=== PATIENT | female | born 1985 | race Caucasian/White ===

== ENCOUNTER 2017-12-12 13:30 | Emergency (ER) | payer MEDICAID ==
[~2017-12-12] VITALS: Ht 152.4 cm; Wt 56.2 kg
[~2017-12-12 13:30] MED LIST: CARBAMAZEPINE100 M2 PO; CIPROFLOXACIN500 M1 PO; CLONAZEPAM 0.50.5 M1; DEPRESSION; DOXYCYCLINE 10100 MG PO; FAMOTIDINE20 MG PO; FLAGYL500 MG PO; HYDROCODON-ACE1 EAC7 PO; HYDROCODONE-AP1 EAC6 PO; HYDROCODONE-IB1 EACH PO; IBUPROFEN 600600 M1 PO; MECLIZINE HCL12.5 MG PO; NOHOMEMEDICATIONS; NORCO 10-325 T1 EACH PO; NORCO 5-325 TA1 EACH PO; ONDANSETRON HCL4 M2 PO; PAXIL 20 MG TAB20 MG PO; PAXIL10 MG PO; PEPCID20 MG PO; PEPCID40 MG PO; PERCOCET 5-3251 EACH PO; PHENERGAN 25 MG25 MG PO; PRENATAL; PROMS25 WY RECTAL; PROTONIX40 MG PO; PROVENTIL HFA6.7 G1 INH; TEGRETOL XR100 MG PO; TESSALON PERLE100 MG PO; TORADOL 10 MG T10 MG PO; TRAZODONE 150150 M1; TRAZODONE HCL100 MG PO; ULTRAM 50MG TAB50 MG PO; VICODIN 5-5001 EACH PO; ZOFRAN ODT4 MG PO; ZOFRAN4 MG PO; ZOLOFT100 MG
[2017-12-12] MEDS ORDERED: FLEXERIL PO (15:23)
[2017-12-12] MEDS ORDERED: NAPROSYN500 MG PO (15:23)
[2017-12-12 15:35] VITALS: BP 101/63
== END 2017-12-12 15:36 | disposition home or self-care (01) ==
LOC: M.ERS 13:30
DX: S39.012A Strain of muscle, fascia and tendon of lower back, initial encounter (principal); F31.9 Bipolar disorder, unspecified; Z90.710 Acquired absence of both cervix and uterus; X58.XXXA Exposure to other specified factors, initial encounter; Y93.89 Activity, other specified; Y92.89 Other specified places as the place of occurrence of the external cause; Y99.0 Civilian activity done for income or pay

== ENCOUNTER 2018-01-14 11:27 | Emergency (ER) | payer OTHER, MEDICAID ==
[~2018-01-14] VITALS: Ht 152.4 cm; Wt 54.4 kg
[~2018-01-14 11:27] MED LIST changes: +FLEXERIL PO; +NAPROSYN500 MG PO
[2018-01-14 12:25] LABS: ABSOLUTE EOSINOPHILS 0.1 thou/uL (0.0-0.7); ABSOLUTE LYMPHOCYTES 1.9 thou/uL (0.8-5.3); ABSOLUTE MONOCYTES 0.3 thou/uL (0.0-1.2); ABSOLUTE NEUTROPHILS 2.4 thou/uL (1.6-8.1); BASOPHILS 0.8 %; EOSINOPHILS 1.5 %; HEMATOCRIT 40.1 % (37.0-47.0); HEMOGLOBIN 13.8 gm/dL (12.0-15.0); LYMPHOCYTES 39.5 %; MCH 30.5 pg (26.0-34.0); MCHC 34.4 g/dL (28.0-37.0); MCV 88.7 fL (80.0-100.0); MONOCYTES 7.2 %; MPV 9.5 fl. (7.2-11.1); NUCLEATED RBCS 0 /100WBC; PLATELET COUNT* 192 thou/uL (150-400); RBC 4.52 mil/uL (4.20-5.00); WBC 4.7 thou/uL (4.0-11.0)
[2018-01-14 12:39] LABS: CALCIUM 8.3 mg/dL (8.5-10.1); CREATININE 0.8 mg/dL (0.6-1.3); POTASSIUM 4.1 mmol/L (3.5-5.1)
[2018-01-14 12:43] LABS: ALBUMIN 3.6 g/dL (3.4-5.0); TOTAL BILIRUBIN 0.7 mg/dL (<0.1-1.0); TOTAL PROTEIN 6.9 g/dL (6.4-8.2)
[2018-01-14 13:39] LABS: URINE BILIRUBIN NEGATIVE (Negative); URINE BLOOD NEGATIVE (Negative); URINE CLARITY CLEAR; URINE COLOR YELLOW; URINE GLUCOSE-RANDOM NEGATIVE (Negative); URINE KETONES NEGATIVE (Negative); URINE LEUKOCYTES-REFLEX NEGATIVE (Negative); URINE NITRITE-REFLEX NEGATIVE (Negative); URINE PROTEIN NEGATIVE (Negative); URINE SPECIFIC GRAVITY 1.015 (1.005-1.030); URINE UROBILINOGEN 0.2 E.U./dl (0.2-1.0)
[2018-01-14] MEDS ORDERED: TRAMADOL 50 MG50 MG PO (14:44)
[2018-01-14] MEDS ORDERED: ZOFRAN4 MG PO (14:44)
[2018-01-14] MEDS ORDERED: PEPCID40 MG PO (14:44)
[2018-01-14 14:50] VITALS: BP 101/59
== END 2018-01-14 14:52 | disposition home or self-care (01) ==
LOC: M.ERS 11:27
PROVIDERS: Emergency Medicine
DX: R10.13 Epigastric pain (principal); F31.9 Bipolar disorder, unspecified; Z90.710 Acquired absence of both cervix and uterus

== ENCOUNTER 2018-04-19 00:41 | Emergency (ER) | payer MEDICAID ==
[~2018-04-19] VITALS: Ht 160 cm; Wt 56.7 kg
[~2018-04-19 00:41] MED LIST changes: +TRAMADOL 50 MG50 MG PO
[2018-04-19 01:04] LABS: ABSOLUTE EOSINOPHILS 0.1 thou/uL (0.0-0.7); ABSOLUTE LYMPHOCYTES 2.6 thou/uL (0.8-5.3); ABSOLUTE MONOCYTES 0.5 thou/uL (0.0-1.2); ABSOLUTE NEUTROPHILS 4.6 thou/uL (1.6-8.1); BASOPHILS 0.6 %; EOSINOPHILS 0.7 %; HEMATOCRIT 39.5 % (37.0-47.0); HEMOGLOBIN 13.5 gm/dL (12.0-15.0); LYMPHOCYTES 33.8 %; MCH 30.4 pg (26.0-34.0); MCHC 34.2 g/dL (28.0-37.0); MONOCYTES 6.1 %; MPV 10.1 fl. (7.2-11.1); NUCLEATED RBCS 0 /100WBC; PLATELET COUNT* 218 thou/uL (150-400); POLYS 58.8 %; RBC 4.44 mil/uL (4.20-5.00); WBC 7.8 thou/uL (4.0-11.0)
[2018-04-19 01:10] LABS: CALCIUM 8.6 mg/dL (8.5-10.1); CREATININE 0.8 mg/dL (0.6-1.3); POTASSIUM 3.7 mmol/L (3.5-5.1)
[2018-04-19 01:16] LABS: ALBUMIN 3.6 g/dL (3.4-5.0); TOTAL BILIRUBIN 0.4 mg/dL (<0.1-1.0); TOTAL PROTEIN 6.6 g/dL (6.4-8.2)
[2018-04-19 01:18] LABS: URINE BILIRUBIN NEGATIVE (Negative); URINE BLOOD 1+ (Negative); URINE CLARITY CLEAR; URINE COLOR YELLOW; URINE GLUCOSE-RANDOM NEGATIVE (Negative); URINE KETONES NEGATIVE (Negative); URINE LEUKOCYTES-REFLEX NEGATIVE (Negative); URINE NITRITE-REFLEX NEGATIVE (Negative); URINE PROTEIN NEGATIVE (Negative); URINE SPECIFIC GRAVITY >= 1.030 (1.005-1.030); URINE UROBILINOGEN 0.2 E.U./dl (0.2-1.0)
[2018-04-19 01:27] LABS: BACTERIA-REFLEX >30 Many /HPF (None Seen); CASTS None Seen /LPF (None Seen); CRYSTALS None Seen /LPF (None Seen); MUCUS >6 Heavy strn/LPF (None Seen); SQUAMOUS 0-3 Few /LPF (0-3); TRANSITIONAL EPITHEL CELL 0-3 Few /LPF (None Seen); URINE RBC 3-10 Few /HPF (0-2); URINE WBC-REFLEX None Seen /HPF (0-5)
[2018-04-19] MEDS ORDERED: HYDROCODONE-AP1 EAC6 PO (04:30)
[2018-04-19 04:44] VITALS: BP 110/78
--- NOTE | 2018-04-21 15:29 | EKG ---
[place] [address] ELECTROCARDIOGRAM REPORT Name: BUCK HANSEN Room: 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
== END 2018-04-19 04:46 | disposition home or self-care (01) ==
LOC: M.ERS 00:41
PROVIDERS: Emergency Medicine Emergency Medical Services
DX: R10.32 Left lower quadrant pain (principal); F31.9 Bipolar disorder, unspecified; Z88.6 Allergy status to analgesic agent; Z90.710 Acquired absence of both cervix and uterus

== ENCOUNTER 2018-05-23 21:46 | Emergency (ER) | payer MEDICAID ==
[~2018-05-23] VITALS: Ht 152.4 cm; Wt 59.0 kg
[2018-05-23 22:00] LABS: URINE BILIRUBIN NEGATIVE (Negative); URINE BLOOD NEGATIVE (Negative); URINE CLARITY CLEAR; URINE COLOR YELLOW; URINE GLUCOSE-RANDOM NEGATIVE (Negative); URINE KETONES NEGATIVE (Negative); URINE LEUKOCYTES-REFLEX NEGATIVE (Negative); URINE NITRITE-REFLEX NEGATIVE (Negative); URINE PROTEIN NEGATIVE (Negative)
[2018-05-23 22:35] LABS: ABSOLUTE EOSINOPHILS 0.1 thou/uL (0.0-0.7); ABSOLUTE LYMPHOCYTES 2.9 thou/uL (0.8-5.3); ABSOLUTE MONOCYTES 0.5 thou/uL (0.0-1.2); ABSOLUTE NEUTROPHILS 4.3 thou/uL (1.6-8.1); BASOPHILS 0.6 %; HEMATOCRIT 39.9 % (37.0-47.0); HEMOGLOBIN 13.6 gm/dL (12.0-15.0); LYMPHOCYTES 36.8 %; MCH 30.4 pg (26.0-34.0); MCHC 34.2 g/dL (28.0-37.0); MCV 88.9 fL (80.0-100.0); MONOCYTES 6.5 %; MPV 9.2 fl. (7.2-11.1); NUCLEATED RBCS 0 /100WBC; PLATELET COUNT* 236 thou/uL (150-400); POLYS 55.1 %; RBC 4.49 mil/uL (4.20-5.00); RDW-CV 12.2 % (10.5-14.5); WBC 7.8 thou/uL (4.0-11.0)
[2018-05-23 22:43] LABS: CALCIUM 8.9 mg/dL (8.5-10.1); CREATININE 0.8 mg/dL (0.6-1.3); POTASSIUM 3.7 mmol/L (3.5-5.1)
[2018-05-23 22:47] LABS: ALBUMIN 3.7 g/dL (3.4-5.0); TOTAL BILIRUBIN 0.3 mg/dL (<0.1-1.0); TOTAL PROTEIN 7.3 g/dL (6.4-8.2)
[2018-05-23 23:30] VITALS: BP 117/62
== END 2018-05-23 23:32 | disposition home or self-care (01) ==
LOC: M.ERS 21:46
PROVIDERS: Nurse Practitioner Family
DX: R10.32 Left lower quadrant pain (principal); R11.2 Nausea with vomiting, unspecified; F31.9 Bipolar disorder, unspecified; Z90.710 Acquired absence of both cervix and uterus; Z88.8 Allergy status to other drugs, medicaments and biological substances

== ENCOUNTER 2019-02-21 14:34 | Emergency (ER) | payer OTHER, MEDICAID ==
[~2019-02-21] VITALS: Ht 152.4 cm; Wt 59.0 kg
[2019-02-21 15:19] LABS: URINE BILIRUBIN NEGATIVE (Negative); URINE BLOOD NEGATIVE (Negative); URINE CLARITY CLEAR; URINE COLOR YELLOW; URINE GLUCOSE-RANDOM NEGATIVE (Negative); URINE KETONES NEGATIVE (Negative); URINE LEUKOCYTES-REFLEX NEGATIVE (Negative); URINE NITRITE-REFLEX NEGATIVE (Negative); URINE PROTEIN NEGATIVE (Negative); URINE SPECIFIC GRAVITY 1.025 (1.005-1.030); URINE UROBILINOGEN 0.2 E.U./dl (0.2-1.0)
[2019-02-21 15:44] LABS: ABSOLUTE LYMPHOCYTES 1.8 thou/uL (0.8-5.3); ABSOLUTE MONOCYTES 0.4 thou/uL (0.0-1.2); ABSOLUTE NEUTROPHILS 4.1 thou/uL (1.6-8.1); BASOPHILS 0.7 %; EOSINOPHILS 0.8 %; HEMATOCRIT 41.1 % (37.0-47.0); HEMOGLOBIN 14.3 gm/dL (12.0-15.0); LYMPHOCYTES 28.6 %; MCH 30.8 pg (26.0-34.0); MCHC 34.9 g/dL (28.0-37.0); MCV 88.1 fL (80.0-100.0); MONOCYTES 5.7 %; MPV 9.3 fl. (7.2-11.1); NUCLEATED RBCS 0 /100WBC; PLATELET COUNT* 247 thou/uL (150-400); POLYS 64.2 %; RBC 4.66 mil/uL (4.20-5.00); RDW-CV 11.8 % (10.5-14.5); WBC 6.3 thou/uL (4.0-11.0)
[2019-02-21 15:47] LABS: ANION GAP 9 mmol/L (7-16); BUN 9 mg/dL (7-18); CALCIUM 8.8 mg/dL (8.5-10.1); CHLORIDE 102 mmol/L (98-107); CO2 26 mmol/L (21-32); CREATININE 0.8 mg/dL (0.6-1.3); GLUCOSE 82 mg/dL (70-99); POTASSIUM 3.6 mmol/L (3.5-5.1); SODIUM 137 mmol/L (136-145)
[2019-02-21 15:57] LABS: ALBUMIN 3.7 g/dL (3.4-5.0); ALKALINE PHOSPHATASE 66 U/L (46-116); LIPASE 163 U/L (73-393); SGOT 13 U/L (15-37); SGPT 21 U/L (30-65); TOTAL BILIRUBIN 0.5 mg/dL (<0.1-1.0); TOTAL PROTEIN 7.4 g/dL (6.4-8.2); TROPONIN-I LEVEL <0.06 ng/mL (<0.06)
[2019-02-21] MEDS ORDERED: NORCO 5-325 TA1 EAC1 PO (17:29)
[2019-02-21] MEDS ORDERED: ZOFRAN ODT4 MG DISSOLVE (17:29)
[2019-02-21 17:47] VITALS: BP 122/87
--- NOTE | 2019-02-23 16:51 | EKG ---
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
== END 2019-02-21 17:48 | disposition home or self-care (01) ==
LOC: M.ERS 14:34
PROVIDERS: Emergency Medicine Emergency Medical Services
DX: N83.202 Unspecified ovarian cyst, left side (principal); F31.9 Bipolar disorder, unspecified; Z88.0 Allergy status to penicillin; Z88.6 Allergy status to analgesic agent; Z88.1 Allergy status to other antibiotic agents; Z90.710 Acquired absence of both cervix and uterus

== ENCOUNTER 2019-04-18 14:39 | Emergency (ER) | payer OTHER ==
[~2019-04-18] VITALS: Ht 165.1 cm; Wt 59.0 kg
[~2019-04-18 14:39] MED LIST changes: +NORCO 5-325 TA1 EAC1 PO; +ZOFRAN ODT4 MG DISSOLVE
[2019-04-18 15:02] LABS: ABSOLUTE LYMPHOCYTES 1.8 thou/uL (0.8-5.3); ABSOLUTE MONOCYTES 0.4 thou/uL (0.0-1.2); ABSOLUTE NEUTROPHILS 3.4 thou/uL (1.6-8.1); BASOPHILS 0.7 %; EOSINOPHILS 0.8 %; HEMATOCRIT 37.7 % (37.0-47.0); HEMOGLOBIN 13.3 gm/dL (12.0-15.0); LYMPHOCYTES 31.6 %; MCHC 35.4 g/dL (28.0-37.0); MCV 87.4 fL (80.0-100.0); MONOCYTES 6.8 %; MPV 9.4 fl. (7.2-11.1); NUCLEATED RBCS 0 /100WBC; PLATELET COUNT* 214 thou/uL (150-400); POLYS 60.1 %; RBC 4.31 mil/uL (4.20-5.00); RDW-CV 12.1 % (10.5-14.5); WBC 5.6 thou/uL (4.0-11.0)
[2019-04-18 15:06] LABS: URINE BILIRUBIN NEGATIVE (Negative); URINE BLOOD NEGATIVE (Negative); URINE CLARITY SL CLOUDY; URINE COLOR YELLOW; URINE GLUCOSE-RANDOM NEGATIVE (Negative); URINE KETONES NEGATIVE (Negative); URINE LEUKOCYTES-REFLEX 1+ (Negative); URINE NITRITE-REFLEX NEGATIVE (Negative); URINE PROTEIN NEGATIVE (Negative); URINE SPECIFIC GRAVITY 1.025 (1.005-1.030); URINE UROBILINOGEN 0.2 E.U./dl (0.2-1.0)
[2019-04-18 15:17] LABS: CASTS None Seen /LPF (None Seen); CRYSTALS None Seen /LPF (None Seen); MUCUS 4-6 Moderate strn/LPF (None Seen); SQUAMOUS >10 Many /LPF (0-3); URINE RBC 0-2 Rare /HPF (0-2); URINE WBC-REFLEX 0-5 Rare /HPF (0-5)
[2019-04-18 15:25] LABS: CALCIUM 8.5 mg/dL (8.5-10.1); CREATININE 0.9 mg/dL (0.6-1.3); POTASSIUM 3.7 mmol/L (3.5-5.1)
[2019-04-18 15:29] LABS: ALBUMIN 3.8 g/dL (3.4-5.0); TOTAL BILIRUBIN 0.5 mg/dL (<0.1-1.0); TOTAL PROTEIN 7.4 g/dL (6.4-8.2)
[2019-04-18] MEDS ORDERED: TYLENOL WITH CO1 TA1 PO (15:42)
[2019-04-18] MEDS ORDERED: ONDANSETRON ODT4 MG PO (15:42)
[2019-04-18 16:15] VITALS: BP 117/74
== END 2019-04-18 16:19 | disposition home or self-care (01) ==
LOC: M.ERS 14:39
PROVIDERS: Physician Assistant
DX: R11.2 Nausea with vomiting, unspecified (principal); R51 Headache; F32.9 Major depressive disorder, single episode, unspecified; J02.9 Acute pharyngitis, unspecified; Z88.1 Allergy status to other antibiotic agents; Z88.0 Allergy status to penicillin; Z88.5 Allergy status to narcotic agent

== ENCOUNTER 2019-05-17 10:37 | Emergency (ER) | payer OTHER ==
[~2019-05-17] VITALS: Ht 152.4 cm; Wt 59.0 kg
[~2019-05-17 10:37] MED LIST changes: +ONDANSETRON ODT4 MG PO; +TYLENOL WITH CO1 TA1 PO
[2019-05-17] MEDS ORDERED: ZANAFLEX4 MG PO (12:56)
[2019-05-17] MEDS ORDERED: NORCO 5-325 TA1 EAC1 PO (12:56)
[2019-05-17] MEDS ORDERED: MEDROLDOSEPACK PO (12:56)
[2019-05-17 13:13] VITALS: BP 122/75
== END 2019-05-17 13:13 | disposition home or self-care (01) ==
LOC: M.ERS 10:37
DX: S30.0XXA Contusion of lower back and pelvis, initial encounter (principal); M54.32 Sciatica, left side; M54.31 Sciatica, right side; F31.9 Bipolar disorder, unspecified; Z88.1 Allergy status to other antibiotic agents; Z88.6 Allergy status to analgesic agent; Z88.0 Allergy status to penicillin; Z90.710 Acquired absence of both cervix and uterus; W01.0XXA Fall on same level from slipping, tripping and stumbling without subsequent striking against object, initial encounter; Y92.89 Other specified places as the place of occurrence of the external cause; Y93.89 Activity, other specified; Y99.8 Other external cause status

== ENCOUNTER 2019-06-16 18:31 | Emergency (ER) | payer OTHER ==
[~2019-06-16] VITALS: Ht 152.4 cm; Wt 59.0 kg
[~2019-06-16 18:31] MED LIST changes: +MEDROLDOSEPACK PO; +ZANAFLEX4 MG PO
[2019-06-16] MEDS ORDERED: LIDODERM1 EACH TRANSDERM ×2 (19:36→19:38)
[2019-06-16] MEDS ORDERED: TYLENOL WITH CO1 TA1 PO (19:36)
[2019-06-16] MEDS ORDERED: MEDROLDOSEPACK PO (19:36)
[2019-06-16 19:54] VITALS: BP 108/68
== END 2019-06-16 19:55 | disposition home or self-care (01) ==
LOC: M.ERS 18:31
DX: M54.6 Pain in thoracic spine (principal); M79.602 Pain in left arm; F31.9 Bipolar disorder, unspecified; Z90.710 Acquired absence of both cervix and uterus; Z88.1 Allergy status to other antibiotic agents; Z88.6 Allergy status to analgesic agent; Z88.0 Allergy status to penicillin

== ENCOUNTER 2019-12-06 22:31 | Emergency (ER) | payer OTHER | END 2019-12-07 02:15 | disposition home or self-care (01) | LOC: M.ERS 22:31 | DX: R10.13 Epigastric pain (principal); R10.11 Right upper quadrant pain; R19.7 Diarrhea, unspecified; F31.9 Bipolar disorder, unspecified; Z90.710 Acquired absence of both cervix and uterus; Z98.51 Tubal ligation status; Z88.0 Allergy status to penicillin; Z88.1 Allergy status to other antibiotic agents; Z88.6 Allergy status to analgesic agent ==

== ENCOUNTER 2020-02-29 21:29 | Emergency (ER) | payer OTHER ==
[~2020-02-29] VITALS: Ht 152.4 cm; Wt 86.2 kg
[~2020-02-29 21:29] MED LIST changes: +CARAFATE 1 GM TA1 GM PO; +DESYREL150 MG PO; +LIDODERM1 EACH TRANSDERM; +LORCET 5-325 M1 EACH PO; +PAXIL40 MG PO; +PRILOSEC OTC20 MG PO
[2020-02-29] MEDS ORDERED: LAMICTAL100 MG PO (21:50)
[2020-02-29 21:57] LABS: ABSOLUTE BASOPHILS 0.1 thou/uL (0.0-0.2); ABSOLUTE EOSINOPHILS 0.1 thou/uL (0.0-0.7); ABSOLUTE LYMPHOCYTES 2.7 thou/uL (0.8-5.3); ABSOLUTE MONOCYTES 0.4 thou/uL (0.0-1.2); ABSOLUTE NEUTROPHILS 3.1 thou/uL (1.6-8.1); BASOPHILS 0.8 %; EOSINOPHILS 1.4 %; HEMATOCRIT 38.5 % (37.0-47.0); HEMOGLOBIN 13.2 gm/dL (12.0-15.0); LYMPHOCYTES 42.2 %; MCHC 34.4 g/dL (28.0-37.0); MCV 87.2 fL (80.0-100.0); MONOCYTES 6.5 %; MPV 8.6 fl. (7.2-11.1); NUCLEATED RBCS 0 /100WBC; PLATELET COUNT* 222 thou/uL (150-400); POLYS 49.1 %; RBC 4.41 mil/uL (4.20-5.00); RDW-CV 12.2 % (10.5-14.5); WBC 6.3 thou/uL (4.0-11.0)
[2020-02-29 21:58] LABS: URINE BILIRUBIN NEGATIVE (Negative); URINE BLOOD NEGATIVE (Negative); URINE CLARITY CLEAR; URINE COLOR YELLOW; URINE GLUCOSE-RANDOM NEGATIVE (Negative); URINE KETONES NEGATIVE (Negative); URINE NITRITE-REFLEX NEGATIVE (Negative); URINE PROTEIN NEGATIVE (Negative); URINE SPECIFIC GRAVITY >= 1.030 (1.005-1.030); URINE UROBILINOGEN 0.2 E.U./dl (0.2-1.0)
[2020-02-29 22:02] LABS: CALCIUM 8.7 mg/dL (8.5-10.1); POTASSIUM 3.6 mmol/L (3.5-5.1)
[2020-02-29 22:03] LABS: URINE LEUKOCYTES-REFLEX 2+ (Negative)
[2020-02-29 22:16] LABS: CASTS None Seen /LPF (None Seen); MUCUS 0-3 Light strn/LPF (None Seen); SQUAMOUS 0-3 Few /LPF (0-3); URINE RBC 0-2 Rare /HPF (0-2); URINE WBC-REFLEX >25 Many /HPF (0-5)
[2020-02-29 22:17] LABS: CRYSTALS None Seen /LPF (None Seen)
[2020-02-29 22:29] LABS: AMP/METHAMP Negative (Negative); BARBITURATES Negative (Negative); BENZODIAZEPINES Negative (Negative); COCAINE Negative (Negative); METHADONE Negative (Negative); OPIATES POSITIVE (Negative); PCP Negative (Negative); THC Negative (Negative)
[2020-03-01] MEDS ORDERED: ZOFRAN ODT4 MG PO (00:19)
[2020-03-01] MEDS ORDERED: BACTRIM DS TAB1 EACH PO (00:19)
[2020-03-01] MEDS ORDERED: PERCOCET 7.5-31 EAC1 PO (00:19)
[2020-03-01 00:52] VITALS: BP 118/80
== END 2020-03-01 00:53 | disposition home or self-care (01) ==
LOC: M.ERS 21:29
PROVIDERS: Emergency Medicine
DX: N39.0 Urinary tract infection, site not specified (principal); Z79.899 Other long term (current) drug therapy; Z88.0 Allergy status to penicillin; Z88.6 Allergy status to analgesic agent; Z88.1 Allergy status to other antibiotic agents; Z90.49 Acquired absence of other specified parts of digestive tract; Z90.710 Acquired absence of both cervix and uterus

== ENCOUNTER 2020-04-18 12:44 | Emergency (ER) | payer MEDICAID ==
[~2020-04-18] VITALS: Ht 152.4 cm; Wt 69.8 kg
[~2020-04-18 12:44] MED LIST changes: +BACTRIM DS TAB1 EACH PO; +LAMICTAL100 MG PO; +PERCOCET 7.5-31 EAC1 PO
[2020-04-18] MEDS ORDERED: PROZAC40 MG PO (12:56)
[2020-04-18 13:07] LABS: ABSOLUTE LYMPHOCYTES 1.8 thou/uL (0.8-5.3); ABSOLUTE MONOCYTES 0.3 thou/uL (0.0-1.2); ABSOLUTE NEUTROPHILS 2.9 thou/uL (1.6-8.1); BASOPHILS 0.7 %; EOSINOPHILS 0.9 %; HEMATOCRIT 40.7 % (37.0-47.0); LYMPHOCYTES 34.6 %; MCH 29.8 pg (26.0-34.0); MCHC 34.5 g/dL (28.0-37.0); MCV 86.4 fL (80.0-100.0); MPV 8.9 fl. (7.2-11.1); NUCLEATED RBCS 0 /100WBC; PLATELET COUNT* 226 thou/uL (150-400); POLYS 57.8 %; RBC 4.71 mil/uL (4.20-5.00); WBC 5.1 thou/uL (4.0-11.0)
[2020-04-18 13:15] LABS: URINE BILIRUBIN NEGATIVE (Negative); URINE BLOOD NEGATIVE (Negative); URINE CLARITY CLEAR; URINE COLOR YELLOW; URINE GLUCOSE-RANDOM NEGATIVE (Negative); URINE KETONES NEGATIVE (Negative); URINE LEUKOCYTES-REFLEX 1+ (Negative); URINE NITRITE-REFLEX NEGATIVE (Negative); URINE PROTEIN NEGATIVE (Negative); URINE SPECIFIC GRAVITY 1.025 (1.005-1.030); URINE UROBILINOGEN 0.2 E.U./dl (0.2-1.0)
[2020-04-18 13:20] LABS: CALCIUM 8.7 mg/dL (8.5-10.1); CREATININE 0.8 mg/dL (0.6-1.3); POTASSIUM 4.4 mmol/L (3.5-5.1)
[2020-04-18 13:24] LABS: ALBUMIN 3.8 g/dL (3.4-5.0); TOTAL BILIRUBIN 0.4 mg/dL (<0.1-1.0); TOTAL PROTEIN 7.6 g/dL (6.4-8.2)
[2020-04-18] MEDS ORDERED: BACTRIM DS TAB1 EACH PO (13:31)
[2020-04-18] MEDS ORDERED: NORCO 5-325 TA1 EAC2 PO (13:31)
[2020-04-18 13:54] VITALS: BP 143/73
== END 2020-04-18 13:55 | disposition home or self-care (01) ==
LOC: M.ERS 12:44
PROVIDERS: Physician Assistant
DX: N39.0 Urinary tract infection, site not specified (principal); R11.2 Nausea with vomiting, unspecified; R19.7 Diarrhea, unspecified; Z88.0 Allergy status to penicillin; Z88.1 Allergy status to other antibiotic agents; Z88.6 Allergy status to analgesic agent; Z90.710 Acquired absence of both cervix and uterus

== ENCOUNTER 2020-08-27 21:04 | Emergency (ER) | payer OTHER ==
[~2020-08-27] VITALS: Ht 152.4 cm; Wt 70.3 kg
[~2020-08-27 21:04] MED LIST changes: +NORCO 5-325 TA1 EAC2 PO; +PROZAC40 MG PO
[2020-08-27] MEDS ORDERED: HYDROCODON-ACE1 EAC8 PO (22:17)
[2020-08-27 22:20] VITALS: BP 130/77
== END 2020-08-27 22:20 | disposition home or self-care (01) ==
LOC: M.ERS 21:04
DX: S93.491A Sprain of other ligament of right ankle, initial encounter (principal); Z90.710 Acquired absence of both cervix and uterus; Z88.1 Allergy status to other antibiotic agents; Z88.6 Allergy status to analgesic agent; Z88.0 Allergy status to penicillin; X50.9XXA Other and unspecified overexertion or strenuous movements or postures, initial encounter; Y93.89 Activity, other specified; Y92.89 Other specified places as the place of occurrence of the external cause; Y99.8 Other external cause status

== ENCOUNTER 2020-10-30 23:58 | Emergency (ER) | payer OTHER ==
[~2020-10-30] VITALS: Ht 152.4 cm; Wt 68.0 kg
[~2020-10-30 23:58] MED LIST changes: +HYDROCODON-ACE1 EAC8 PO
[2020-10-31 00:25] LABS: URINE BILIRUBIN NEGATIVE (Negative); URINE BLOOD NEGATIVE (Negative); URINE CLARITY SL HAZY; URINE COLOR YELLOW; URINE GLUCOSE-RANDOM NEGATIVE (Negative); URINE KETONES NEGATIVE (Negative); URINE LEUKOCYTES-REFLEX 2+ (Negative); URINE NITRITE-REFLEX NEGATIVE (Negative); URINE PROTEIN NEGATIVE (Negative); URINE SPECIFIC GRAVITY 1.025 (1.005-1.030); URINE UROBILINOGEN 0.2 E.U./dl (0.2-1.0)
[2020-10-31 00:33] LABS: AMP/METHAMP Negative (Negative); BARBITURATES Negative (Negative); BENZODIAZEPINES Negative (Negative); COCAINE Negative (Negative); METHADONE Negative (Negative); OPIATES Negative (Negative); PCP Negative (Negative); THC Negative (Negative)
[2020-10-31 00:38] LABS: ABSOLUTE EOSINOPHILS 0.1 thou/uL (0.0-0.7); ABSOLUTE LYMPHOCYTES 2.5 thou/uL (0.8-5.3); ABSOLUTE MONOCYTES 0.4 thou/uL (0.0-1.2); ABSOLUTE NEUTROPHILS 2.6 thou/uL (1.6-8.1); BASOPHILS 0.9 %; EOSINOPHILS 1.5 %; HEMATOCRIT 38.8 % (37.0-47.0); HEMOGLOBIN 13.5 gm/dL (12.0-15.0); LYMPHOCYTES 44.3 %; MCH 30.1 pg (26.0-34.0); MCHC 34.8 g/dL (28.0-37.0); MCV 86.5 fL (80.0-100.0); MONOCYTES 6.3 %; MPV 8.8 fl. (7.2-11.1); NUCLEATED RBCS 0 /100WBC; PLATELET COUNT* 251 thou/uL (150-400); RBC 4.48 mil/uL (4.20-5.00); RDW-CV 12.3 % (10.5-14.5); WBC 5.6 thou/uL (4.0-11.0)
[2020-10-31 00:49] LABS: CALCIUM 9.1 mg/dL (8.5-10.1); POTASSIUM 4.1 mmol/L (3.5-5.1)
[2020-10-31 00:49] LABS: SQUAMOUS 0-3 Few /LPF (0-3); WBC CLUMPS Few (None Seen)
[2020-10-31 00:50] LABS: BACTERIA-REFLEX >30 Many /HPF (None Seen); CASTS None Seen /LPF (None Seen); CRYSTALS None Seen /LPF (None Seen); MUCUS 4-6 Moderate strn/LPF (None Seen); URINE RBC None Seen /HPF (0-2)
[2020-10-31 00:54] LABS: ALBUMIN 3.9 g/dL (3.4-5.0); TOTAL BILIRUBIN 0.1 mg/dL (<0.1-1.0); TOTAL PROTEIN 7.7 g/dL (6.4-8.2)
[2020-10-31] MEDS ORDERED: HYDROCODON-ACE1 EAC8 PO ×3 (01:28→21:14)
[2020-10-31] MEDS ORDERED: ZOFRAN ODT4 MG PO (01:28)
[2020-10-31] MEDS ORDERED: BACTRIM DS TAB1 EACH PO ×2 (01:28→02:43)
[2020-10-31 02:50] VITALS: BP 112/61
== END 2020-10-31 02:50 | disposition home or self-care (01) ==
LOC: M.ERS 23:58
PROVIDERS: Emergency Medicine
DX: N12 Tubulo-interstitial nephritis, not specified as acute or chronic (principal); Z88.1 Allergy status to other antibiotic agents; Z88.0 Allergy status to penicillin; Z90.710 Acquired absence of both cervix and uterus; Z79.899 Other long term (current) drug therapy

== ENCOUNTER 2021-01-23 16:46 | Emergency (ER) | payer OTHER, MEDICAID ==
[~2021-01-23] VITALS: Ht 152.4 cm; Wt 68.0 kg
[2021-01-23] MEDS ORDERED: ZOLOFT 50 MG TA50 MG PO (16:55)
[2021-01-23] MEDS ORDERED: VENTOLIN HFA 1818 GM INH (17:28)
[2021-01-23] MEDS ORDERED: FLEXERIL PO (17:28)
[2021-01-23] MEDS ORDERED: ZOFRAN ODT4 MG PO (17:28)
[2021-01-23 17:36] VITALS: BP 120/70
== END 2021-01-23 17:37 | disposition home or self-care (01) ==
LOC: M.ERS 16:46
DX: B34.9 Viral infection, unspecified (principal); Z20.822 Contact with and (suspected) exposure to COVID-19; R42 Dizziness and giddiness; F31.9 Bipolar disorder, unspecified; Z87.42 Personal history of other diseases of the female genital tract; Z90.711 Acquired absence of uterus with remaining cervical stump; Z98.51 Tubal ligation status; Z79.899 Other long term (current) drug therapy; Z88.6 Allergy status to analgesic agent; Z88.0 Allergy status to penicillin; Z88.1 Allergy status to other antibiotic agents

== ENCOUNTER 2021-03-19 20:51 | Emergency (ER) | payer OTHER, MEDICAID ==
[~2021-03-19] VITALS: Ht 152.4 cm; Wt 70.3 kg
[~2021-03-19 20:51] MED LIST changes: +VENTOLIN HFA 1818 GM INH; +ZOLOFT 50 MG TA50 MG PO
[2021-03-19 21:03] LABS: URINE BILIRUBIN NEGATIVE (Negative); URINE BLOOD NEGATIVE (Negative); URINE CLARITY SL HAZY; URINE COLOR YELLOW; URINE GLUCOSE-RANDOM NEGATIVE (Negative); URINE KETONES NEGATIVE (Negative); URINE LEUKOCYTES-REFLEX 1+ (Negative); URINE NITRITE-REFLEX NEGATIVE (Negative); URINE PROTEIN NEGATIVE (Negative); URINE SPECIFIC GRAVITY >= 1.030 (1.005-1.030); URINE UROBILINOGEN 0.2 E.U./dl (0.2-1.0)
[2021-03-19 21:13] LABS: BACTERIA-REFLEX >30 Many /HPF (None Seen); CASTS None Seen /LPF (None Seen); CRYSTALS None Seen /LPF (None Seen); MUCUS 0-3 Light strn/LPF (None Seen); SQUAMOUS 0-3 Few /LPF (0-3); URINE RBC 3-10 Few /HPF (0-2); URINE WBC-REFLEX 6-15 Few /HPF (0-5)
[2021-03-19 21:15] LABS: ABSOLUTE EOSINOPHILS 0.1 thou/uL (0.0-0.7); ABSOLUTE LYMPHOCYTES 2.5 thou/uL (0.8-5.3); ABSOLUTE MONOCYTES 0.4 thou/uL (0.0-1.2); ABSOLUTE NEUTROPHILS 2.4 thou/uL (1.6-8.1); BASOPHILS 0.7 %; EOSINOPHILS 1.4 %; HEMATOCRIT 39.6 % (37.0-47.0); HEMOGLOBIN 13.8 gm/dL (12.0-15.0); MCH 30.3 pg (26.0-34.0); MCHC 34.8 g/dL (28.0-37.0); MCV 87.2 fL (80.0-100.0); MPV 9.1 fl. (7.2-11.1); NUCLEATED RBCS 0 /100WBC; PLATELET COUNT* 243 thou/uL (150-400); POLYS 43.9 %; RBC 4.54 mil/uL (4.20-5.00); RDW-CV 12.2 % (10.5-14.5); WBC 5.4 thou/uL (4.0-11.0)
[2021-03-19 21:23] LABS: CREATININE 0.9 mg/dL (0.6-1.3)
[2021-03-19] MEDS ORDERED: BACTRIM DS TAB1 EAC1 PO (21:50)
[2021-03-19] MEDS ORDERED: PYRIDIUM200 MG PO (21:55)
[2021-03-19 22:14] VITALS: BP 118/81
== END 2021-03-19 22:14 | disposition home or self-care (01) ==
LOC: M.ERS 20:51
PROVIDERS: Nurse Practitioner Psychiatric/Mental Health
DX: N39.0 Urinary tract infection, site not specified (principal); F31.9 Bipolar disorder, unspecified; Z90.711 Acquired absence of uterus with remaining cervical stump; Z98.51 Tubal ligation status; Z87.42 Personal history of other diseases of the female genital tract; Z79.899 Other long term (current) drug therapy; Z88.6 Allergy status to analgesic agent; Z88.0 Allergy status to penicillin

== ENCOUNTER 2021-06-27 01:04 | Emergency (ER) | payer OTHER, MEDICAID ==
[~2021-06-27] VITALS: Ht 152.4 cm; Wt 72.6 kg
--- NOTE | ~2021-06-27 | EMS ---
[facility] [address] [place] [address] EMS Patient Care Report Name: CHELITA PERALTA Room: [facility] ([place], [place])Lynette#: [id number] Admission: 06/27/21 Attend Phys: Discharge: 06/27/21 Date of : [birth year] Report #: [id number] THIS REPORT FOR: //name// Report Transmitted: 06/29/2021 13:38 EMS Care Summary [facility] [place] Incident [id number] @ 06/27/2021 00:24 Incident Location [address] [place] [address] Patient Chelita Peralta Female, 36 Years 1985 Patient Address [address] [place] [address] Patient History Kidney Stone,Acquired absence of cervix and uterus,Anxiety disorder, unspecified,Dysthymic disorder, Patient Allergies , Patient Medications An Tariq, Chief Complaint Bleeding Disposition Transported No Lights/[place] Dispatch Reason Hemorrhage/Laceration Transported To [facility] Narrative 308 was dispatched to a residence for bleeding while urinating. 308 arrived at [address] [facility]. After several minutes of searching for the address, dispatch advised of an address correction. 308 arrived on scene of the correct address. [facility] [address] [place] [address] EMS Patient Care Report Name: CHELITA PERALTA Room[facility]#: [id number] Admission: 06/27/21 Attend Phys: Discharge: 06/27/21 Date of : 87 Report #: [id number] Pt was found crouching in front of the couch with her head leaning on the couch. [facility] was on scene with. Pt was alert and oriented to person, place, time, and event. Pt was cooperative. Pt stated it felt like the last time she had kidney stones. Pt was assisted to standing position. Pt was able to walk out to the cot on her own without any injuries/incidents. Pt was seatbelted onto the cot using all straps. Pt was loaded into the ambulance without any injuries/incidents. Pt was put on the monitor. Pt vitals were obtained and documented. Pt stated the last time she had kidney stones was in March of 2021. Pt was asked about positions that made the pain lessen or worse. Pt stated there was no position that made the pain better. En route pt was cooperative. Pt vitals were obtained and documented. Pt was talking in full sentences showing signs of maintaining her own airway. Pt was not showing any signs of respiratory distress. Pt skin was moist, warm, and normal appearance. Pt was resting on cot. Pt was crying due to the pain. Pt had informed EMS she had taken some tylenol for the pain. At destination pt was cooperative. Pt was unhooked from the monitor. Pt was unloaded from the ambulance without any injuries/incidents. Pt was escorted on the cot to ER triage without any injuries/incidents. Pt was unbuckled from the cot and walked by herself to the chair in the triage intake without any injuries/incidents. Pt report was given to nurse. Pt care was transferred to nurse. Initial Vitals @00:42SpO2: 100, @00:46SpO2: 98, @00:51SpO2: 99, @00:56SpO2: 99, @00:57SpO2: 99, @00:42P: 96,R: 18,BP: 145/99, @00:57P: 79,R: 19,BP: 143/90, @00:42GCS: 15, @00:57GCS: 15, Assessments @00:31MENTAL:SKIN:HEENT:LUNG SOUNDS:ABDOMEN:PELVIS//GI:EXTREMITIES:PULSE:NEURO: Impression Urinary Tract Infection (UTI) Timeline 00:23,Dispatch Notified 00:23,Psap Call 00:24,Dispatched 00:24,En Route 00:31,[place] [address] EMS Patient Care Report Name: CHELITA PERALTA Room: [facility] ([place], [place])Lynette#: [id number] Admission: 06/27/21 Attend Phys: Discharge: 06/27/21 Date of : 87 Report #: [id number] 00:31,At Patient 00:42,BP: / M,PULSE: ,RR: R,SPO2: 100 Ox,ETCO2: ,BG: ,PAIN: ,GCS: , 00:42,BP: 145/99 M,PULSE: 96,RR: 18 R,SPO2: Ox,ETCO2: ,BG: ,PAIN: ,GCS: , 00:42,BP: / M,PULSE: ,RR: R,SPO2: Ox,ETCO2: ,BG: ,PAIN: ,GCS: 15, 00:44,Depart Scene 00:46,BP: / M,PULSE: ,RR: R,SPO2: 98 Ox,ETCO2: ,BG: ,PAIN: ,GCS: , 00:51,BP: / M,PULSE: ,RR: R,SPO2: 99 Ox,ETCO2: ,BG: ,PAIN: ,GCS: , 00:56,BP: / M,PULSE: ,RR: R,SPO2: 99 Ox,ETCO2: ,BG: ,PAIN: ,GCS: , 00:57,BP: / M,PULSE: ,RR: R,SPO2: 99 Ox,ETCO2: ,BG: ,PAIN: ,GCS: , 00:57,BP: 143/90 M,PULSE: 79,RR: 19 R,SPO2: Ox,ETCO2: ,BG: ,PAIN: ,GCS: , 00:57,BP: / M,PULSE: ,RR: R,SPO2: Ox,ETCO2: ,BG: ,PAIN: ,GCS: 15, 01:02,At Destination 01:07,Call Closed Disclaimer v1.1 Copyright 2021 [employer] This EMS Care Summary contains data elements from the applicable legal record (which may be displayed differently). It is designed to provide pertinent information for the following purposes: continuity of care, clinical quality, and state data reporting. The complete legal record is available to ED staff and administrators of the receiving hospital in [employer] Patient Tracker. All data is provided "as is."
[~2021-06-27 01:04] MED LIST changes: +BACTRIM DS TAB1 EAC1 PO; +PYRIDIUM200 MG PO
[2021-06-27] MEDS ORDERED: ABILIFY 2 MG2 M1 PO (01:09)
[2021-06-27 02:33] LABS: URINE BILIRUBIN NEGATIVE (Negative); URINE BLOOD 3+ (Negative); URINE CLARITY SL CLOUDY; URINE COLOR YELLOW; URINE GLUCOSE-RANDOM NEGATIVE (Negative); URINE KETONES NEGATIVE (Negative); URINE LEUKOCYTES-REFLEX 1+ (Negative); URINE NITRITE-REFLEX NEGATIVE (Negative); URINE PROTEIN NEGATIVE (Negative); URINE SPECIFIC GRAVITY 1.025 (1.005-1.030); URINE UROBILINOGEN 0.2 E.U./dl (0.2-1.0)
[2021-06-27 02:33] LABS: HEMATOCRIT 37.7 % (37.0-47.0); HEMOGLOBIN 12.9 gm/dL (12.0-15.0); MCHC 34.3 g/dL (28.0-37.0); MCV 87.6 fL (80.0-100.0); MPV 8.8 fl. (7.2-11.1); RBC 4.31 mil/uL (4.20-5.00); RDW-CV 12.1 % (10.5-14.5); WBC 6.2 thou/uL (4.0-11.0)
[2021-06-27 02:37] LABS: CALCIUM 8.3 mg/dL (8.5-10.1); CREATININE 0.7 mg/dL (0.6-1.3); POTASSIUM 3.7 mmol/L (3.5-5.1)
[2021-06-27 02:41] LABS: ALBUMIN 3.8 g/dL (3.4-5.0); TOTAL BILIRUBIN 0.3 mg/dL (<0.1-1.0); TOTAL PROTEIN 7.1 g/dL (6.4-8.2)
[2021-06-27 02:42] LABS: BACTERIA-REFLEX >30 Many /HPF (None Seen); CASTS None Seen /LPF (None Seen); CRYSTALS None Seen /LPF (None Seen); MUCUS 0-3 Light strn/LPF (None Seen); SQUAMOUS 0-3 Few /LPF (0-3); URINE RBC >20 Many /HPF (0-2); URINE WBC-REFLEX >25 Many /HPF (0-5); WBC CLUMPS Few (None Seen)
[2021-06-27] MEDS ORDERED: ACETAMINOPHEN-1 EAC2 PO (05:00)
[2021-06-27] MEDS ORDERED: IBUPROFEN 800800 MG PO (05:00)
[2021-06-27] MEDS ORDERED: ZOFRAN ODT4 MG PO (05:00)
[2021-06-27] MEDS ORDERED: CIPROFLOXACIN500 M1 PO (05:03)
[2021-06-27 05:30] VITALS: BP 123/71
== END 2021-06-27 05:32 | disposition home or self-care (01) ==
LOC: M.ERS 01:04
PROVIDERS: Personal Emergency Response Attendant
DX: N39.0 Urinary tract infection, site not specified (principal); R10.84 Generalized abdominal pain; F32.9 Major depressive disorder, single episode, unspecified; Z90.710 Acquired absence of both cervix and uterus; Z98.51 Tubal ligation status; Z79.899 Other long term (current) drug therapy; Z88.0 Allergy status to penicillin; Z88.5 Allergy status to narcotic agent